=== PATIENT | female | born 1940 | race Two or more races ===

== ENCOUNTER → 2017-07-31 | Outpatient (CLI) | payer OTHER ==
[~2017-07-31] MED LIST: PROSOM2 MG PO; TOPROL XL25 MG PO
== END | disposition home or self-care (01) ==
LOC: LAB 09:20
DX: I11.0 Hypertensive heart disease with heart failure (principal); E61.2 Magnesium deficiency; E61.7 Deficiency of multiple nutrient elements; D53.8 Other specified nutritional anemias; E20.0 Idiopathic hypoparathyroidism; N39.0 Urinary tract infection, site not specified; E78.2 Mixed hyperlipidemia; E04.0 Nontoxic diffuse goiter

== ENCOUNTER 2017-11-22 08:14 | Outpatient (CLI) | payer OTHER | END 2017-11-22 09:04 | disposition home or self-care (01) | LOC: LAB 08:14 | DX: B02.9 Zoster without complications (principal) ==

== ENCOUNTER 2017-12-26 08:25 | Outpatient (CLI) | payer OTHER | END 2017-12-26 08:35 | disposition home or self-care (01) | LOC: LAB 08:25 | DX: I11.0 Hypertensive heart disease with heart failure (principal); D53.8 Other specified nutritional anemias; N36.2 Urethral caruncle; E04.0 Nontoxic diffuse goiter; E78.2 Mixed hyperlipidemia; K76.1 Chronic passive congestion of liver; N39.0 Urinary tract infection, site not specified; E55.9 Vitamin D deficiency, unspecified; D64.89 Other specified anemias; N95.1 Menopausal and female climacteric states ==

== ENCOUNTER 2018-05-08 09:13 | Outpatient (CLI) | payer OTHER | END 2018-05-08 09:23 | disposition home or self-care (01) | LOC: LAB 09:13 | DX: I10 Essential (primary) hypertension (principal); D53.8 Other specified nutritional anemias; E78.00 Pure hypercholesterolemia, unspecified; N39.0 Urinary tract infection, site not specified; E04.0 Nontoxic diffuse goiter; Z12.11 Encounter for screening for malignant neoplasm of colon; B99.8 Other infectious disease ==

== ENCOUNTER 2018-05-23 10:02 | Outpatient (CLI) | payer OTHER | END 2018-05-23 10:36 | disposition home or self-care (01) | LOC: LAB 10:02 | DX: N39.0 Urinary tract infection, site not specified (principal) ==

== ENCOUNTER 2018-08-29 10:08 | Outpatient (CLI) | payer OTHER | END 2018-08-29 10:16 | disposition home or self-care (01) | LOC: LAB 10:08 | DX: I11.0 Hypertensive heart disease with heart failure (principal); D53.8 Other specified nutritional anemias; E78.2 Mixed hyperlipidemia; N39.0 Urinary tract infection, site not specified; E04.0 Nontoxic diffuse goiter; E11.00 Type 2 diabetes mellitus with hyperosmolarity without nonketotic hyperglycemic-hyperosmolar coma (NKHHC); E55.9 Vitamin D deficiency, unspecified; N36.2 Urethral caruncle ==

== ENCOUNTER 2019-01-07 09:33 | Outpatient (CLI) | payer OTHER | END 2019-01-07 15:00 | disposition home or self-care (01) | LOC: LAB 09:33 | DX: I11.0 Hypertensive heart disease with heart failure (principal); D53.8 Other specified nutritional anemias; E04.8 Other specified nontoxic goiter; E78.2 Mixed hyperlipidemia; E55.9 Vitamin D deficiency, unspecified; E58 Dietary calcium deficiency; N36.2 Urethral caruncle ==

== ENCOUNTER → 2019-04-22 10:18 | Outpatient (CLI) | payer OTHER | END | disposition home or self-care (01) | LOC: LAB 10:18 | DX: I11.0 Hypertensive heart disease with heart failure (principal); D53.8 Other specified nutritional anemias; E44.1 Mild protein-calorie malnutrition; N39.0 Urinary tract infection, site not specified; E78.2 Mixed hyperlipidemia ==

== ENCOUNTER → 2019-09-17 09:20 | Outpatient (CLI) | payer OTHER | END | disposition home or self-care (01) | LOC: LAB 09:20 | PROVIDERS: ATTEND Internal Medicine Endocrinology, Diabetes & Metabolism | DX: I11.0 Hypertensive heart disease with heart failure (principal); D53.8 Other specified nutritional anemias; N39.0 Urinary tract infection, site not specified; E78.2 Mixed hyperlipidemia; E11.9 Type 2 diabetes mellitus without complications; E04.8 Other specified nontoxic goiter ==

== ENCOUNTER 2020-01-13 07:49 | Outpatient (CLI) | payer OTHER | END 2020-01-13 08:01 | disposition home or self-care (01) | LOC: LAB 07:49 | PROVIDERS: ATTEND Internal Medicine Endocrinology, Diabetes & Metabolism | DX: E03.8 Other specified hypothyroidism (principal); I10 Essential (primary) hypertension; E78.2 Mixed hyperlipidemia; N36.2 Urethral caruncle; E11.9 Type 2 diabetes mellitus without complications; D51.0 Vitamin B12 deficiency anemia due to intrinsic factor deficiency; N39.0 Urinary tract infection, site not specified ==

== ENCOUNTER 2020-05-18 09:24 | Outpatient (CLI) | payer OTHER | END 2020-05-18 09:32 | disposition home or self-care (01) | LOC: LAB 09:24 | PROVIDERS: ATTEND Obstetrics & Gynecology | DX: D64.89 Other specified anemias (principal); E03.8 Other specified hypothyroidism; N95.1 Menopausal and female climacteric states; I10 Essential (primary) hypertension; Z12.11 Encounter for screening for malignant neoplasm of colon ==

== ENCOUNTER → 2020-07-20 07:37 | Outpatient (CLI) | payer OTHER | END | disposition home or self-care (01) | LOC: LAB 07:37 | PROVIDERS: ATTEND Obstetrics & Gynecology | DX: N95.1 Menopausal and female climacteric states (principal); E04.1 Nontoxic single thyroid nodule; E55.9 Vitamin D deficiency, unspecified; E78.00 Pure hypercholesterolemia, unspecified ==

== ENCOUNTER 2020-07-26 08:56 | Outpatient (CLI) | payer OTHER | END 2020-07-26 09:04 | disposition home or self-care (01) | LOC: LAB 08:56 | PROVIDERS: ATTEND Obstetrics & Gynecology | DX: N95.1 Menopausal and female climacteric states (principal); E04.1 Nontoxic single thyroid nodule; E55.9 Vitamin D deficiency, unspecified; E78.00 Pure hypercholesterolemia, unspecified ==

== ENCOUNTER → 2020-12-09 09:34 | Outpatient (CLI) | payer OTHER | END | disposition home or self-care (01) | LOC: LAB 09:34 | PROVIDERS: ATTEND Internal Medicine Gastroenterology | DX: I11.0 Hypertensive heart disease with heart failure (principal); K76.1 Chronic passive congestion of liver; D53.8 Other specified nutritional anemias; N39.0 Urinary tract infection, site not specified; E78.2 Mixed hyperlipidemia; E11.9 Type 2 diabetes mellitus without complications; E04.8 Other specified nontoxic goiter; D50.1 Sideropenic dysphagia; R74.01 Elevation of levels of liver transaminase levels; K57.30 Diverticulosis of large intestine without perforation or abscess without bleeding ==

== ENCOUNTER 2021-04-21 09:29 | Outpatient (CLI) | payer OTHER | END 2021-04-21 09:40 | disposition home or self-care (01) | LOC: LAB 09:29 | PROVIDERS: ATTEND Internal Medicine Endocrinology, Diabetes & Metabolism | DX: E04.9 Nontoxic goiter, unspecified (principal); I11.0 Hypertensive heart disease with heart failure; D53.9 Nutritional anemia, unspecified; N39.0 Urinary tract infection, site not specified; E78.2 Mixed hyperlipidemia; E11.9 Type 2 diabetes mellitus without complications; I70.7 Atherosclerosis of other type of bypass graft(s) of the extremities; N36.2 Urethral caruncle; K76.89 Other specified diseases of liver ==

== ENCOUNTER 2021-06-10 08:00 | Outpatient (CLI) | payer OTHER | END 2021-06-10 08:30 | disposition home or self-care (01) | LOC: PPH VACUNA 08:00 | PROVIDERS: ATTEND Emergency Medicine Pediatric Emergency Medicine | DX: Z23 Encounter for immunization (principal) ==

== ENCOUNTER 2021-09-27 13:03 | Outpatient (CLI) | payer OTHER | END 2021-09-27 13:15 | disposition home or self-care (01) | LOC: TOM 13:03 | PROVIDERS: ATTEND Internal Medicine Gastroenterology | DX: K57.30 Diverticulosis of large intestine without perforation or abscess without bleeding (principal); K56.600 Partial intestinal obstruction, unspecified as to cause ==

== ENCOUNTER 2022-08-09 11:55 | Outpatient (CLI) | payer OTHER | END 2022-08-09 12:01 | disposition home or self-care (01) | LOC: LAB 11:55 | PROVIDERS: ATTEND Internal Medicine Endocrinology, Diabetes & Metabolism | DX: N39.0 Urinary tract infection, site not specified (principal) ==

== ENCOUNTER 2023-01-16 10:31 | Outpatient (CLI) | payer OTHER ==
[2023-01-16 11:59] LABS: PH,URINE 6.5 (5.0-8.0); URINE APPEARANCE Clear; URINE BILIRRUBIN Negative (NEGATIVE); URINE BLOOD Negative; URINE COLOR Yellow; URINE GLUCOSE Negative (NEGATIVE); URINE LEUKOCYTE Negative; URINE NITRATE Negative; URINE PROTEIN Negative (NEGATIVE); URINE UROBILINOGEN 0.2 E.U./dl
[2023-01-16 12:18] LABS: URINE BACTERIA 3.7 uL (0.0-1933); URINE EPITHELIAL CELLS 1.2 uL (0.0-38.8); URINE WBC 0.9 uL (0.0-23.2)
== END 2023-01-16 10:32 | disposition home or self-care (01) ==
LOC: LAB 10:31
PROVIDERS: ATTEND Internal Medicine Endocrinology, Diabetes & Metabolism
DX: N39.0 Urinary tract infection, site not specified (principal)

== ENCOUNTER 2023-05-07 09:11 | Outpatient (CLI) | payer OTHER ==
[2023-05-07 10:18] LABS: URINE APPEARANCE Clear; URINE BILIRRUBIN Negative (NEGATIVE); URINE BLOOD Negative; URINE COLOR Yellow; URINE GLUCOSE Negative (NEGATIVE); URINE LEUKOCYTE Negative; URINE NITRATE Negative; URINE PROTEIN Negative (NEGATIVE); URINE UROBILINOGEN 0.2 E.U./dl
[2023-05-07 10:27] LABS: HEMATOCRIT 41.6 % (36.0-45.00); HEMOGLOBIN 14.2 g/dL (12.0-15.00); MEAN CELL VOLUME 89.8 fL (80.00-100.00); MEAN CORPUSCULAR HEMOGLOBIN 30.6 pg (27.00-32.0); PLATELET COUNT 186 K/uL (150-450); RED BLOOD COUNT 4.63 M/uL (4.00-6.00); RED CELL DISTRIBUTION WIDTH 14.8 % (11.5-14.5)
[2023-05-07 10:37] LABS: URINE BACTERIA 2.5 uL (0.0-1933); URINE EPITHELIAL CELLS 0.3 uL (0.0-38.8)
[2023-05-07 11:21] LABS: ALBUMIN 3.8 gm/dL (3.4-5.0); BILIRUBIN TOTAL 1.59 mg/dL (0.3-1.2); CALCIUM 9.4 mg/dL (8.5-10.1); CHOL HDL RATIO 2.4 (0-5.0); CREATININE SERUM 0.92 mg/dL (0.55-1.02); GFR 58.44; GLOBULINA 3.7 G/DL (2.4-3.5); POTASSIUM 4.25 mEq/L (3.5-5.1); T4 FREE 1.07 NG/ML (0.76-1.46); TOTAL PROTEIN 7.5 gm/dL (6.4-8.2); TSH 1.72 uIU/mL (0.358-3.74)
== END 2023-05-07 09:12 | disposition home or self-care (01) ==
LOC: LAB 09:11
PROVIDERS: ATTEND Internal Medicine Endocrinology, Diabetes & Metabolism
DX: I11.0 Hypertensive heart disease with heart failure (principal); D53.8 Other specified nutritional anemias; E11.9 Type 2 diabetes mellitus without complications; E04.9 Nontoxic goiter, unspecified; E78.00 Pure hypercholesterolemia, unspecified; N39.0 Urinary tract infection, site not specified